=== PATIENT | female | born 1960 | race Caucasian/White ===

== ENCOUNTER 2021-06-07 08:30 | Outpatient (CLI) | payer BC, SELFPAY ==
--- NOTE | 2021-06-07 08:30 | RT.EKG_ITS ---
APPROVED REPORT Exam: Resting ECG Reason for Exam: CAD Patient Location: O HR:59 bpm ECG Measurements Heart Rate 59 AXIS CA 155 P 16 QRSd 108 QRS 11 QT 426 T 33 QTc 422 Conclusion Sinus rhythm...normal P axis, V-rate 50- 99 Normal Electrocardiogram
== END 2021-06-07 08:31 | disposition home or self-care (01) ==
LOC: DI.CARD 08:31
PROVIDERS: PCP Physician Assistant; Visit Provider Internal Medicine Cardiovascular Disease
DX: I25.10 Atherosclerotic heart disease of native coronary artery without angina pectoris (principal)
CPT/HCPCS: 93010

== ENCOUNTER 2021-06-17 02:03 | Outpatient (CLI) | payer BC, SELFPAY ==
--- NOTE | 2021-06-17 09:00 | ETT_ITS ---
APPROVED REPORT Exam: Exercise Treadmill Patient Location: Out-Patient Room/Bed: Stress Nurse: Anita Suarez RN Ordering Provider:DONNIE PÉREZ, Contact Number: BMI: 36.57 Baseline Rhythm: Sinus Rhythm Indications: CAD Medical History Medical History: CAD, peripheral venous insufficiency, anxiety, HLD, hypothyroid, VEENA Cardiac Medications: Atorvastatin Allergies: NKDA Cardiac Risk Factors: Family Hx, Current smoker, HLD, Obesity Previous Cardiac Procedures: none Pretest Chest Pain Characteristics: none Exercise History: Sedentary Physical Disabilities: none Lung Sounds: Clear to auscultation Heart Sounds: Regular Stress Test Details Test: Exercise stress testing was performed using a Eros protocol. Rest Stress HR Resting HR Supine: 56 bpm Max Heart Rate (APMHR): 162 bpm Resting HR Standin bpm Target HR (85% APMHR): 137 bpm Max HR Achieved: 143 bpm % of APMHR: 88 Recovery HR: 73 bpm HR response to stress: Normal HR response to stress BP Resting BP Supine: 126/68 mmHg Resting BP Standin/76 mmHg Max BP: 174/78 mmHg Recovery BP: 132/62 mmHg BP response to stress: Normal blood pressure response to stress. ECG Resting ECG: Sinus Rhythm Ectopy: none Stress ECG: Sinus Rhythm, Sinus Tachycardia ST Change: No significant ST segment changes noted Arrhythmia: None Recovery ECG: Sinus Rhythm Recovery ST Change: No significant ST segment changes noted Recovery Arrhythmia: None Clinical Reason for Termination: Fatigue Stress Symptoms: none Exercise duration: 7 min49 sec Highest Stage Reached: Stage 3: 3.4 mph at 14% grade. Exercise capacity: 9.85 METs Dent Treadmill Score: 7.6 Rate Pressure Product: [id number] Stress ECG Conclusion 1. The resting electrocardiogram was within normal limits 2. Patient exercised on the Eros protocol and completed a workload of 9.85 METS, stopping due to fat igue 3. Normal heart rate and blood pressure response to exercise 4. The patient achieved 88% of predicted heart rate for age 5. There was no electrocardiographic evidence of myocardial ischemia 6. There were no dysrhythmias Dent Treadmill Score is 7.6 which is Low risk. Stress Test Summary STAGE Time (mins) Speed (mph) Grade (%) HR BP SYMPTOMS METS Supine 56 126/68 Standing 64 122/76 1 3 1.7 10 109 134/78 4.6 2 6 2.5 12 125 158/86 7 1 min recovery 120 174/78 3 min recovery 81 162/70 6 min recovery 73 132/62
== END 2021-06-17 02:23 ==
PROVIDERS: PCP Physician Assistant; Visit Provider Internal Medicine Cardiovascular Disease
DX: I25.10 Atherosclerotic heart disease of native coronary artery without angina pectoris (principal)
CPT/HCPCS: 93017

== ENCOUNTER 2022-12-14 10:53 | Day surgery (SDC) | payer BC, SELFPAY ==
[2022-12-14] VITALS (8 sets, daily range): BP systolic 88–129; BP diastolic 56–89; PULSE 65–83; RESP 16–22; TEMP 36.3–36.6; O2SAT 90–96; BMI 39.5
--- NOTE | 2022-12-14 10:28 | W.PM.DSUDISC ---
Date of service: 12/14/22 Time of Service: 10:28 Discharge Plan Disposition Patient Disposition: Home Condition: Good Discharge Details Reason For Visit: L Cubital Tunnel Release Attending Provider: Livan Alba Primary Care Provider: Manuela Santana Home Meds and New Rx's Prescriptions: New hydrocodone-acetaminophen 5-325 mg tablet 1 tab PO Q6H PRN (Reason: pain) Qty: 12 0RF acetaminophen 500 mg tablet 1,000 mg PO TID Qty: 90 0RF ibuprofen 600 mg tablet 600 mg PO TID PRN (Reason: pain) Qty: 90 0RF Continued brimonidine [Alphagan P] 0.15 % drops 1 drp ophthalmic (eye) BID Rx Instructions: Right Eye atorvastatin 10 mg tablet 10 mg PO .COMPLEX Rx Instructions: 10 mg PO Monday, Monday,Monday and Monday; difluprednate [Durezol] 0.05 % drops 1 drp ophthalmic (eye) Q OTHER DAY Rx Instructions: start on Day 15 of therapy omega-3 fatty acids [Fish Oil Concentrate] 1,000 mg capsule 2,000 mg PO DAILY paroxetine HCl 20 mg tablet 20 mg PO DAILY timolol maleate 0.5 % drops 1 drp ophthalmic (eye) DAILY Rx Instructions: right eye levothyroxine 112 mcg capsule See Rx Instructions PO DAILY Rx Instructions: 88 PO daily; alprazolam [Xanax] 0.25 mg tablet 0.5 mg PO QHS red yeast rice 600 mg tablet 600 mg PO DAILY Rx Instructions: give with meal/snack magnesium oxide 400 mg magnesium Tablet 400 mg PO DAILY Discontinued naproxen sodium [Aleve] 220 mg tablet 220 mg PO BID PRN Discharge Instructions Additional Instructions: Cubital Tunnel Decompression Discharge Instructions Activity: You should stay in the sling for the first 2 weeks. You may come out of the sling for gentle motion and hygiene but should largely remain in the sling to allow the incision site to heal. Gentle motion of the elbow, hand, wrist, and fingers is okay and encouraged after the first few days, but no repetitive activites nor heavy lifting. You may apply ice. Medications: - You should take Tylenol and Ibuprofen around the clock. - You have been prescribed Hydrocodone for breakthrough pain. Dressings: - The initial surgical dressing should stay in place for 3 days. It may then be removed and kept clean and dry. You should cover with a light gauze dressing. - You may shower after 3 days and get the wound wet. Follow-up: 10 days Stand Alone Forms: Anesthesia Discharge Inst., Gerard Loo ([facility]) Referrals: Livan Alba MD [ [facility] STAFF PHYSICIAN] - 12/26/22 11:15 am Equipment/Supplies: Sling Activity:: Elevate Remove Dressings/Wound Care:: 72 hours Shower/Bathe:: 72 hours Diet:: As Tolerated Discharge Orders Discharge Orders: Discharge Order (Routine); Ordered 12/14/22 Ordered By: Tim Baxter DS: Diagnosis Discharge Diagnosis (1) Cubital tunnel syndrome on left: Status: Acute
[2022-12-14] MEDS: Lactated Ringers 1,000 ML 80 ML IV (11:52)
--- NOTE | 2022-12-14 12:41 | W.ANESPRE ---
General Info Date of Service Date Performed: 12/14/22 Height: 5 ft 1 in Weight: 94.9 kg Body Mass Index (BMI): 39.5 Surgical Procedure: Operation Date: 12/14/22 12:55 Proposed Procedure Side Surgeon p Cubital Release Left Livan Alba MD Meds Allergies and Home Medications Allergies Allergy/AdvReac Type Severity Reaction Status Date / Time No Known Allergies Allergy Verified 12/14/22 11:22 Home Medication Medication Instructions Recorded atorvastatin 10 mg tablet 10 mg PO .COMPLEX 03/19/21 brimonidine 0.15 % eye drops 1 drp ophthalmic (eye) BID 03/19/21 (Alphagan P) difluprednate 0.05 % eye drops 1 drp ophthalmic (eye) Q OTHER DAY 03/19/21 (Durezol) omega-3 fatty acids 1,000 mg 2,000 mg PO DAILY 03/19/21 capsule (Fish Oil Concentrate) paroxetine HCl 20 mg tablet 20 mg PO DAILY 03/19/21 timolol maleate 0.5 % eye drops 1 drp ophthalmic (eye) DAILY 03/19/21 alprazolam 0.25 mg tablet (Xanax) 0.5 mg PO QHS 06/07/21 levothyroxine 112 mcg capsule See Rx Instructions PO DAILY 06/07/21 red yeast rice 600 mg tablet 600 mg PO DAILY 08/30/22 magnesium oxide 400 mg PO DAILY 12/12/22 acetaminophen 500 mg tablet 1,000 mg PO TID #90 tabs 12/14/22 hydrocodone 5 mg-acetaminophen 325 1 tab PO Q6H PRN pain #12 tabs 12/14/22 mg tablet ibuprofen 600 mg tablet 600 mg PO TID PRN pain #90 tabs 12/14/22 Current Visit Medications: Current Medications Generic Name Dose Route Start Last Admin Trade Name Freq PRN Reason Stop Dose Admin Acetaminophen 650 mg 12/14/22 10:26 Acetaminophen 325 Mg Tab PO 01/13/23 10:25 Q4H PRN PRN Hydrocodone Bitart/Acetaminophen 0 tab 12/14/22 10:26 Hydrocodone 5/Acetaminophen 325 Tab PO 01/13/23 10:25 Q3H PRN PRN Pain Ringer's Solution 1,000 mls @ 80 mls/hr 12/14/22 06:00 12/14/22 11:52 IV 01/12/23 23:59 80 mls/hr INFUSION [place] Administration Cefazolin Sodium/Dextrose 2 gm in 50 mls @ 100 mls/hr 12/14/22 06:00 Ancef Duplex IVPB 12/14/22 16:00 PREOP [place] IV Miscellaneous Supplies 1 each 12/14/22 06:00 Iv Access IV 01/12/23 23:59 DIRECTED [place] Sodium Chloride 0 ml 12/14/22 06:00 Normal Saline Flush 10 Ml Syr IV 01/12/23 23:59 PRN PRN Sodium Chloride 0 ml 12/14/22 06:00 Normal Saline 10 Ml Vial IJ 01/12/23 23:59 DIRECTED PRN Sterile Water 0 ml 12/14/22 06:00 Water,Injection,Sterile 10 Ml Vial IJ 01/12/23 23:59 DIRECTED PRN PFSH Active Problems Active Problems: Problem Status Onset Code Verruca vulgaris B07.9 Hypothyroidism E03.9 Thyroiditis E06.9 Hyperlipidemia E78.5 Anxiety F41.9 Obstructive sleep apnea G47.33 Glaucoma H40.9 Cataract H26.9 Peripheral venous insufficiency I87.2 Brachial neuritis M54.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, intervertebral disc, 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 Osteoporosis M81.0 CAD (coronary artery disease) I25.10 Tobacco abuse Z72.0 Cubital tunnel syndrome on left G56.22 Medical History Medical History Comments:: 12/14/22 pt reports she has smoked 3 cigarettes today Surgical History Surgical History History of cataract surgery 12-05-17 History of colonoscopy 04-30-15 Hx of hysterectomy Hx of tubal ligation 04-17-92 S/P removal of thyroid nodule 04-17-2004 Tobacco Smoking/Tobacco Use Status: Current every day Tobacco Type: cigarettes Smoking packs per day: 0.5 Smoking cigarettes per day: 10.0 Years smoked: 29 Smoking pack-years: 14.50 Alcohol Alcohol Intake: current Alcohol intake frequency: a few times a month Substance Use Substance use: Never Substance use type: does not use Vital Signs and Lab Results Vital Signs Most Recent Vital Signs in EMR: Most Recent Vital Signs Temp Pulse Resp BP Pulse Ox 36.3 C L 67 16 129/89 96 12/14/22 11:15 08/30/23 11:15 12/14/22 11:15 12/14/22 11:15 12/14/22 11:15 Lab Results Blood Type / Crossmatch: No Data to Display Complete Blood Count: No Data to Display Complete Metabolic Panel: No Data to Display Liver Function Panel: No Data to Display Coagulation Panel: No Data to Display Cardiac Panel: No Data to Display Arterial Blood Gas: No Data to Display Venous Blood Gas: No Data to Display Pancreas Panel: No Data to Display Thyroid Panel: No Data to Display Infectious Disease: No Data to Display Blood Cultures: No Data to Display Toxicology Panel: No Data to Display Imaging and Studies Imaging and Studies Study information below may be from another EMR and interpreted by another provider. Please see original notes in EMR for more complete details. EKG Summary: 06/08: sinus. Stress Test Summary: 06/17/22: 9.85 METS, 88% of predicted HR, no ECG evidence of ischemia. Anesthesia Assessment and Plan Anesthesia History Personal History: No History of Anesthesia Complications Family History: No Family History of Anesthesia Complications Exercise Tolerance Exercise Tolerance: Metabolic Equivalents>4 Cardiac & Pulmonary Exam Cardiac Exam: Normal S1/S2 Heart Sounds Pulmonary Exam: Clear Bilateral Breath Sounds Implantable Cardiac Device Does patient have a Pacemaker or an ICD?: No Airway Exam Known Difficult Airway: No Mallampati Class: 3 Mouth Opening: Normal (> 3cm) Thyromental Distance: Less than 3 cm Neck Range of Motion: Full ROM Neck Circumference: Normal Teeth Condition: Normal Dentition and Removable Dentures/Plates Upper ASA Classification ASA Score: ASA 2 Emergency Case?: No NPO Status NPO Status: NPO Clears >2 hours, Solids >8 hours Anesthesia Plan Resuscitation Status: Full Code Anesthesia Technique: General Anesthesia Airway Planned: LMA Monitors Used: Standard Monitors Preoperative Comments:: 62 yo female for cubital tunnel release. Sig PMHx: CAD (noted plaque on CT, stress test/ECG unremarkable. No chest pain with exertion), VEENA, hypothyroid (on replacement), anxiety (alprazolam, paroxetine), smoker, occ EtOH.
[2022-12-14] MEDS: ceFAZolin 2 GM/50 ML BAG IVPB (13:29)
[2022-12-14] MEDS: Bupivacaine 0.5% Pres-Free W/EPI 30 ML VIAL (14:02)
--- NOTE | 2022-12-14 14:49 | W.ANESPOSTOP ---
Postoperative Evaluation Date, Time and Location Date Performed: 12/14/22 Time Performed: 14:35 Patient Location: PACU Vital Signs Most Recent Imported Vital Signs: Most Recent Vital Signs Temp Pulse Resp BP Pulse Ox 36.6 C 67 16 108/71 93 12/14/22 14:35 12/14/22 14:35 12/14/22 14:35 12/14/22 14:35 12/14/22 14:35 Pain Score Most Recent Pain Score: Most Recent Pain Score Pain Level 0 12/14/22 14:35 Assessment Mental Status: Awake (Alert & Oriented to Patient Baseline) Airway and Respiratory Function: Patent airway with normal (patient baseline) respiratory exam Cardiovascular Function: Hemodynamically Stable Hydration Status: Adequately Hydrated Nausea & Vomiting: No Nausea or Vomiting Pain: Pt. Denies Any Pain Peripheral Nerve Block: Patient did not receive a nerve block
--- NOTE | 2022-12-14 16:16 | ROE_ITS ---
Date of service: 12/14/22 Time of Service: 13:45 Operative Note Operative Note DATE OF PROCEDURE: 12/14/22 PRE-OP DIAGNOSIS: Left Cubital Tunnel Syndrome POST-OP DIAGNOSIS: same PROCEDURE: Left Cubital Tunnel Decompression SURGEON: Livan Alba CHEMISTRY SPECIALIST: Tim Baxter ANESTHESIA TYPE: General LMA/ETT Refer to Anesthesia Record ESTIMATED BLOOD LOSS: 0 PATHOLOGY: none sent TOURNIQUET TIME: 13 COMPLICATIONS: None Patient was transported to: PACU Patient's condition: stable Indications: Hannah is a 62 year old female who has had symptoms of cubital tunnel syndrome. Nonoperative treatment options had been trialed. Nerve conduction studies identified the cubital tunnel as the point of compression. Given failure of nonoperative treatments and persistent symptoms, I offered operative intervention. I reviewed the technical details of a cubital tunnel decompression with possible anterior subcutaneous transposition. I reviewed the risk of the procedure to include bleeding, infection, pain, stiffness, tendon instability, damage to the superficial radial nerve, and complete release. Daryl pite these risks, the patient elected to proceed. Findings: There was a tightened cubital tunnel. 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 The ulnar nerve was release from the first motor branch distally through the [place] proximally and was stable without need for transposition. Procedure Description: Hannah was greeted in the preoperative holding area. Name and surgical site were confirmed. The history and physical was completed. The consent was reviewed the patient and signed. She was taken back to the operating room. The patient was placed in the supine positioned and a general anesthetic was administered. The left was then prepped with ChloraPrep and draped in a standard fashion after a nonsterile tourniquet was placed high up into the axilla of the arm. Prophylactic antibiotics in the form of cefazolin were administered. A timeout was performed for safe surgery. The surgical site was drawn on the skin as was the medial epicondyle borders. The planned surgical field was anesthetized with 1% lidocaine with epinephrine. The limb was exsanguinated and the tourniquet was inflated where it stayed for 13 minutes. A 8 cm incision was made curvilinearly around the medial elbow. The skin was incised only. The deep tissue and subcutaneous fat was dissected with a tenotomy scissors trying to protect any branches of the medial antebrachial cutaneous nerve. Any branches that were identified were retracted out of the way. The ulnar nerve was palpated and identified. A small window into the cubital tunnel, sheath overlying the nerve, was created and the nerve was able to be palpated with the [place]. A Metzenbaum scissor was then used to open up the sheath starting with Boss's ligament. There was muscle present in this region which extending from the medial epicondyle to the proximal ulna and represented an anconeus epitrochlearis. This muscle was split which further exposed the ulnar nerve and its sheath. I then worked distal over the ulnar nerve releasing any constraints against the nerve all the way to the fascia of the FCU muscle belly. This muscle belly was bluntly all the way down to the first motor branch of the ulnar nerve and the overlying fascia was incised. Likewise starting there at the lateral epicondyle, I proceeded to work proximally to release any constraints over the ulnar nerve. This was taken all the way to the [place]. The medial intermuscular septum was also palpated and any sharp edges against the ulnar nerve were resected and released. After fully releasing the nerve it was inspected visually. I was also able to palpate the nerve fully and reach one finger up into the proximal and distal aspects to make sure there were no constraints against the nerve. A freer elevator was also used to slide easily against the ulnar nerve without any points of constriction. The arm was then taken through range of motion. The ulnar nerve did not sublux/dislocate out of its groove behind the medial epicondyle. Therefore, no transposition was performed. The tourniquet was then deflated. Any areas of bleeding were cauterized with bipolar electrocautery. The wound was thoroughly irrigated. The deep tissue was closed with a 3-0 Vicryl. The skin was closed with a 4-0 nylon. The wound was dressed with Xeroform, 4 x 4's, ABD, Kerlix and an Laci wrap. Hannah was placed into a sling. She was transferred back to the PACU in a stable condition.
== END 2022-12-14 15:55 | disposition home or self-care (01) ==
LOC: SUR 10:53
PROVIDERS: PCP Physician Assistant Medical; Visit Provider Student in an Organized Health Care Education/Training Program
PROC: (CPT 64718; principal; 2022-12-14 12:45)
DX: G56.22 Lesion of ulnar nerve, left upper limb (principal); I25.10 Atherosclerotic heart disease of native coronary artery without angina pectoris; E03.9 Hypothyroidism, unspecified; G47.33 Obstructive sleep apnea (adult) (pediatric)
CPT/HCPCS: 64718; J0690; J1100; J2250; J2405; J2704

== ENCOUNTER 2023-05-01 12:50 | Outpatient (CLI) | payer BC, SELFPAY ==
--- NOTE | 2023-05-01 10:15 | DI.RAD_ITS ---
Exam(s) XR CERVICAL SP DE [place] CRUZ TRAUMA 2-3V EXAM: XR CERVICAL SP DE [place]UZ TRAUMA 2-3V CLINICAL HISTORY: left upper extremity paresthesias. TECHNIQUE: 2D digital imaging was performed. COMPARISON: No exams were available for comparison FINDINGS: 3 views No evidence of fracture, listhesis, nor offset of the spinal laminar line. All the disc spaces exhib it normal height. There are some facet joint degenerative changes. No cervical ribs. No significant osseous lesions. IMPRESSION: Facet arthropathy noted. No disc space narrowing. No fractures. DATA REPOSITORY: RADIATION DOSE DELIVERED:
--- NOTE | 2023-05-01 10:15 | DI.RAD_ITS ---
Exam(s) XR SHOULDER LT COMPLETE 2+V EXAM: XR SHOULDER LT COMPLETE 2+V CLINICAL HISTORY: LEFT SHOULDER PAIN. TECHNIQUE: 2D digital imaging was performed. COMPARISON: No exams were available for comparison FINDINGS: 3 views There is no evidence of fracture or dislocation and there are no significant degenerative changes in the glenohumeral joint. No soft tissue calcifications in the subacromial space is not diminished. T here are moderate degenerative changes in the AC joint. No osseous lesions. IMPRESSION: Moderate degenerative AC joint changes. DATA REPOSITORY: RADIATION DOSE DELIVERED:
== END 2023-05-01 12:51 | disposition home or self-care (01) ==
LOC: DIORS 13:09
PROVIDERS: PCP Physician Assistant Medical; Visit Provider Student in an Organized Health Care Education/Training Program
DX: M25.512 Pain in left shoulder (principal); R20.2 Paresthesia of skin
CPT/HCPCS: 72040; 73030